=== PATIENT | male | born 1945 | race Caucasian/White ===

== ENCOUNTER 2018-04-23 08:51 | Outpatient (CLI) | payer MEDICARE, BC ==
--- NOTE | 2018-04-18 10:13 | NUR ---
left msg on machine regarding instructions on procedure. requested a call back to verify meds, allergies and pmh.
[~2018-04-23] VITALS: Ht 172.7 cm; Wt 120.9 kg
[2018-04-23] VITALS (15 sets, daily range): BP systolic 105–171; BP diastolic 38–87; PULSE 55–61
[~2018-04-23 08:51] MED LIST: 00186-0370-20 IH; ASPIRIN 32325 MG/TAB PO; ASPIRIN 81M81 MG/TA2 PO; DILAUDID 2MG TAB2 MG PO; GLUCOPHAGE1000 MG PO; LASIX 20MG TABL20 MG PO; LIPITOR 40MG TA40 MG PO; LIPITOR40 MG PO; LOPRESSOR 550 MG/TAB PO; PRILOSEC 20MG20 MG PO; RT SPIRIVA18 MCG IH; SINGULAIR10 MG PO; STOOL SOFTENER100 M2 PO; TYLENOL 325MG325 MG PO; ZYRTEC10 MG PO
--- NOTE | 2018-04-23 09:55 | NUR ---
PT ON THE TABLE AND MONITORING EQUIPMENT PLACED. TIMEOUT DONE WITH DR DAMON.
--- NOTE | 2018-04-23 10:00 | NUR ---
PT DOING WELL. NO REPORTED PAIN
--- NOTE | 2018-04-23 10:05 | NUR ---
PT DOING WELL. NO PAIN
--- NOTE | 2018-04-23 10:10 | NUR ---
PT DOING WELL.
--- NOTE | 2018-04-23 10:15 | NUR ---
PT IS DOPING WELL. PROCEDURE COMPLETED. NO PAIN. PT DID COUGH UP SOME BLOOD. MONITORING EQUIPMENT DC'D. PT TRANSFERED TO CART HIMSELF.
--- NOTE | 2018-04-23 10:49 | NUR ---
REPORT GIVEN TO DANA HARRIS. BROUGHT INTO ROOM. SPECIMEN TAKEN TO LAB.
--- NOTE | 2018-04-23 12:50 | NUR ---
PT VSS AND AX0X3 POST BIOPSY. PT VERBALIZES REDUCTION IN BLOOD TINGED SPUTUM AND DENIES PAIN AT THIS TIME. BAND AID REMAINS C/D/I. POST CXR RECEIVED AND VIEWED PER RAD. DISCHARGE INSTRUCTIONS REVIEWED AND SIGNED. 22G REMOVED FROM LEFT AC. PT AMBULATED AND VOIDED ONCE WITHOUT ISSUE. WHEELED SAFELY OUT VIA WHEELCHAIR WITH PRESENT ALONG SIDE INDIAN NANNY.
--- NOTE | 2018-04-23 14:48 | NUR ---
PT TO ROOM [address] LUNG BIOPSY. VSS AND AX0X3. BAND AID TO UPPER MID CHEST IS C/D/I. PT IS RESTING COMFORTABLY AND DENIES PAIN AT THIS TIME.
== END 2018-04-23 12:50 | disposition home or self-care (01) ==
LOC: COL.RAD 08:51
DX: R91.1 Solitary pulmonary nodule (principal)

== ENCOUNTER 2020-03-18 16:00 | Inpatient (IN) | payer MEDICARE, BC ==
[~2020-03-18] VITALS: Ht 172.7 cm; Wt 117.0 kg
[2020-03-18 17:13] LABS: TROPONIN-I < 0.012 ng/mL (0.000-0.035)
[2020-03-18 17:22] LABS: ALBUMIN 3.8 gm/dL (3.5-5.0); BILIRUBIN,TOTAL 2.9 mg/dL (0.0-1.0); CALCIUM 8.1 mg/dL (8.4-10.2); CREATININE, serum 2.48 (0.66-1.25); POTASSIUM 4.9 mmol/L (3.4-5.0); TOTAL PROTEIN 7.1 gm/dL (6.4-8.2)
[2020-03-18] MEDS ORDERED: ASPIRIN 81M81 MG/TA2 PO (20:39)
[2020-03-18] MEDS ORDERED: GLUMETZA500 MG PO (20:39)
[2020-03-18] MEDS ORDERED: LOPRESSOR 225 MG/TAB PO (20:40)
[2020-03-18] MEDS ORDERED: PROAIR HFA0.09 MG/AC IH (20:41)
[2020-03-18 21:00] VITALS: BP 125/40; PULSE 62; TEMP 98.5
[2020-03-18 22:07] VITALS: BP 125/40; PULSE 62; TEMP 98.5
[2020-03-18 22:38] LABS: MEAN CELL VOLUME 87 fl (80.0-100.0); MEAN CORPUSCULAR HGB CONC 33 g/dl (33.0-37.0); PLATELET COUNT 72 K/mm3 (130-400); RED BLOOD COUNT 3.08 M/mm3 (4.20-5.60); REDCELL DISTRIBUTION WIDTH-CV 15.9 % (11.5-14.5)
[2020-03-18 22:42] LABS: HEMATOCRIT 26.7 % (42.0-52.0); HEMOGLOBIN 8.9 g/dl (13.5-18.0); MEAN CORPUSCULAR HEMOGLOBIN 29 pg (27.0-31.0)
[2020-03-18 22:45] LABS: LACTATE DEHYDROGENASE 1505 U/L (313-618)
[2020-03-18 22:51] LABS: BILIRUBIN,DIRECT 0.1 mg/dL (0.0-0.4)
[2020-03-18 22:56] LABS: INR 1.1 (0.8-3.0); PROTHROMBIN TIME 12.7 SECONDS (9.7-12.8)
[2020-03-18 22:57] LABS: PARTIAL THROMBOPLASTIN TIME 31.6 SECONDS (26.0-37.0)
[2020-03-18 22:59] LABS: TROPONIN-I < 0.012 ng/mL (0.000-0.035)
[2020-03-18 23:04] LABS: ANISOCYTOSIS 1+; BAND 6 % (0-10); HYPOCHROMIA 1+; LYMPHOCYTE 40 % (20.0-51.0); MICROCYTOSIS 1+; NEUTROPHILS 48 % (42.0-75.2); OVALOCYTES 1+; PLATELET ESTIMATE DECREASED (NORMAL); POIKILOCYTOSIS 1+
[2020-03-18 23:05] LABS: BURR CELLS 1+; TEAR DROP CELLS 1+
[2020-03-18 23:34] LABS: COLLECTION METHOD CLEAN CATCH
[2020-03-18 23:46] VITALS: BP 142/61; PULSE 65; TEMP 97.4
[2020-03-18 23:47] LABS: AMORPHOUS CRYSTAL Present /uL; PH 5 (5-8); SQUAMOUS EPITHELIAL None Seen /hpf; URINE APPEARANCE Turbid; URINE BACTERIA Occasional /hpf; URINE BILIRUBIN Negative (NEGATIVE); URINE BLOOD Negative (NEGATIVE); URINE COLOR Amber; URINE GLUCOSE Negative (NEGATIVE); URINE KETONE Negative (NEGATIVE); URINE LEUKOCYTE ESTERASE Negative (NEGATIVE); URINE NITRATE Negative (NEGATIVE); URINE PROTEIN(semi-quant) 1+ (NEGATIVE); URINE RBC 0-2 /hpf; URINE UROBILINOGEN Negative (NEGATIVE)
[2020-03-19 04:22] VITALS: BP 133/40; PULSE 68; TEMP 98.5
--- NOTE | 2020-03-19 07:00 | NUR ---
Pt is laying in bed asleep at this time. Will assess after pt wakes up, pt did mention to product owner rn, that he would prefer to sleep until absolutely necessary to wake up. No further concerns.
[2020-03-19 07:53] LABS: ANION GAP 11 mmol/L (7-16); BLOOD UREA NITROGEN 52 mg/dL (9-20); CALCIUM 7.7 mg/dL (8.4-10.2); CARBON DIOXIDE 18 mmol/L (22-30); CHLORIDE 110 mmol/L (98-107); CREATININE, serum 2.19 (0.66-1.25); GLUCOSE 96 mg/dL (74-106); LIPASE 57 U/L (23-300); POTASSIUM 4.4 mmol/L (3.4-5.0); SODIUM 139 mmol/L (137-145)
[2020-03-19 07:58] LABS: MEAN CELL VOLUME 87 fl (80.0-100.0); MEAN CORPUSCULAR HGB CONC 33 g/dl (33.0-37.0); MEAN PLATELET VOLUME 10.7 fl (7.4-10.4); PLATELET COUNT 73 K/mm3 (130-400); RED BLOOD COUNT 2.69 M/mm3 (4.20-5.60)
[2020-03-19 07:59] LABS: TROPONIN-I < 0.012 ng/mL (0.000-0.035)
[2020-03-19 08:05] LABS: HEMATOCRIT 23.5 % (42.0-52.0); HEMOGLOBIN 7.7 g/dl (13.5-18.0); MEAN CORPUSCULAR HEMOGLOBIN 29 pg (27.0-31.0)
[2020-03-19 08:49] LABS: BAND 5 % (0-10); NEUTROPHILS 53 % (42.0-75.2)
[2020-03-19 08:50] LABS: LYMPHOCYTE 33 % (20.0-51.0)
[2020-03-19 08:51] LABS: PLATELET ESTIMATE DECREASED (NORMAL)
[2020-03-19 08:54] LABS: ANISOCYTOSIS 1+; BURR CELLS 1+; HYPOCHROMIA 1+; OVALOCYTES 1+; POIKILOCYTOSIS 2+
[2020-03-19 09:01] LABS: CREATININE, serum 2.1 (0.66-1.25)
[2020-03-19 09:25] VITALS: BP 131/50; PULSE 84; TEMP 98.8
[2020-03-19 12:09] LABS: RETIC # 0.01 M/mm3 (0.02-0.16); RETIC % 0.4 % (0.5-3.52)
[2020-03-19 12:15] VITALS: BP 134/49; PULSE 73; TEMP 98.1
[2020-03-19 13:12] LABS: HEMATOCRIT 23.5 % (42.0-52.0); HEMOGLOBIN 7.6 g/dl (13.5-18.0)
--- NOTE | 2020-03-19 13:33 | NUR ---
RIGHT AC IV CAME OUT. REPLACED IV IN THE LEFT AC. PT TOLERATED PROCESS WITHOUT DISCOMFORT. NO FURTHER CONCERNS. CALL LIGHT WITHIN REACH.
--- NOTE | 2020-03-19 13:52 | NUR ---
Primary nurse was assisted with [phone] [facility] AD[employer] student Richard oJhnston and [facility] instructor Viri Cooper RN-.
--- NOTE | 2020-03-19 16:24 | NUR ---
Payroll Technician met with the patient and the patient's , Dorota to complete intake. The patient lives in [place] with Dorota. The patient uses a BiPAP The patient is independent. The patient's PCP is Dr. Wen and patient receives medications from [facility]. The patient does not have advanced directives in the EMR but states they are complete and designate Dorota. The patient plans to return home at discharge. There are no additional needs at this time.
[2020-03-19 16:57] VITALS: BP 125/32; PULSE 73; TEMP 97.4
[2020-03-19 19:56] VITALS: BP 120/54; PULSE 76; TEMP 97.5
--- NOTE | 2020-03-19 20:00 | NUR ---
Bedside shift report received from Minnie. Patient is resting in bed, at bedside. He has just been assisted to the restroom and states he is beginning to have clear/watery bowel movements. He has no complaints of pain or nausea. He has finished drinking the bowel prep solution. No new concerns, call light in reach.
[2020-03-19 23:50] VITALS: BP 123/47; PULSE 74; TEMP 98.4
[2020-03-20] VITALS (12 sets, daily range): BP systolic 108–169; BP diastolic 47–83; PULSE 72–89; TEMP 97.4–98.3
--- NOTE | 2020-03-20 06:12 | NUR ---
Patient's bowel prep was successful and patient is having clear, watery bowel movements. He is currently resting in bed and has been informed of his EGD/colonoscopy scheduled for 0700 this morning. Pre-op fluids are prepared and primed on gravity tubing at patient's bedside. Call light in reach.
--- NOTE | 2020-03-20 06:30 | NUR ---
REPORT RCVD FROM STEVEN SANZ. PT IS CURRENTLY GOING TO ENDO WITH STEVEN SANCHEZ.
[2020-03-20 06:51] LABS: MEAN CELL VOLUME 89 fl (80.0-100.0); MEAN CORPUSCULAR HGB CONC 32 g/dl (33.0-37.0); MEAN PLATELET VOLUME 9.7 fl (7.4-10.4); PLATELET COUNT 60 K/mm3 (130-400); RED BLOOD COUNT 2.47 M/mm3 (4.20-5.60); REDCELL DISTRIBUTION WIDTH-CV 16.1 % (11.5-14.5)
[2020-03-20 07:00] LABS: ALBUMIN 3.1 gm/dL (3.5-5.0); BILIRUBIN,TOTAL 1.6 mg/dL (0.0-1.0); CALCIUM 7.5 mg/dL (8.4-10.2); CREATININE, serum 1.48 (0.66-1.25); POTASSIUM 4.7 mmol/L (3.4-5.0); TOTAL PROTEIN 6.2 gm/dL (6.4-8.2)
[2020-03-20 07:31] LABS: MEAN CORPUSCULAR HEMOGLOBIN 28 pg (27.0-31.0)
[2020-03-20 08:30] LABS: ANISOCYTOSIS 1+; BAND 6 % (0-10); BURR CELLS 1+; EOSINOPHIL 1 % (0-4); HYPOCHROMIA 1+; MYELOCYTE 2 % (0-0); OVALOCYTES 1+; PLATELET ESTIMATE DECREASED (NORMAL)
[2020-03-20 08:34] LABS: LYMPHOCYTE 31 % (20.0-51.0); NEUTROPHILS 55 % (42.0-75.2)
[2020-03-20 08:34] LABS: PATHOLOGY DIFF REVIEW OK +
--- NOTE | 2020-03-20 10:01 | NUR ---
PT WILL NEED A PRBC TRANSFUSION. ASSESSMENT COMPLETED. LUNG SOUNDS ARE CLEAR, PT IS SLIGHTLY DYSPNIC ON EXERTION. BBK IS READY WITH PRBCs TRANSFUSION TO START WITHIN THE HOUR. NO FURTHER CONCERNS.
--- NOTE | 2020-03-20 11:05 | NUR ---
This RN printed Procedure consent per patient's nurse request.
[2020-03-20 12:52] LABS: PERITONEAL -POLYMORPHONUCLEAR 15.9 % (0-25)
[2020-03-20 12:55] LABS: PERITONEAL FLUID RBC 4000 /mm3 (0-0)
--- NOTE | 2020-03-20 14:15 | NUR ---
Primary nurse was assisted with [phone] patient care by [facility] [employer] ADN student Richard Johnston and [facility] instructor Viri Cooper RN-.
--- NOTE | 2020-03-20 14:40 | NUR ---
Dr Martínez in room, procedure started after time out, fentanyl 50mcg iv given as ordered.
--- NOTE | 2020-03-20 14:50 | NUR ---
specimans obtained from site, 10 samples in formulin. bandaid oversite, pt has no c/o
--- NOTE | 2020-03-20 15:00 | NUR ---
report called to Minnie HARRIS, pt walked to bed, transferred to room via bed by Supervisor Slitting And Shipping
--- NOTE | 2020-03-20 15:20 | NUR ---
PT HAS HAD AN EVENTFUL DAY. EGD/COLON DONE THIS AM AT 0700, RESULTS DISCUSSED WITH PT BY DR. PEREZ. 1 UNIT OF PRBCs TRANSFUSED, FOLLOWING THAT, THE PATIENT WENT DOWN FOR A PARACENTESIS WELL A PERITONEAL BIOPSY. NO OTHER CONCERNS FOR THE DAY. PT TOLERATED ALL PROCEDURES WITH NO ISSUES. PT IS BACK IN HIS ROOM, SITTING IN RECLINER AND IS ORDERING DINNER.
[2020-03-20 16:59] LABS: HEMOGLOBIN 8.3 g/dl (13.5-18.0)
[2020-03-20 17:00] LABS: HEMATOCRIT 24.8 % (42.0-52.0)
--- NOTE | 2020-03-20 18:59 | NUR ---
Patient alert and oriented. ate dinner. denies any pain. spouse at bed
--- NOTE | 2020-03-20 20:30 | NUR ---
Initial shift assessment done- denies pain, denies SOB, states he is feeling so much better after the unit of blood this afternoon, Tele on, NSR, Iv fluids of NS ar 125cc/hr,, using his own CPAP at night,, Will call Amina HDEZ about new order for Lovenox--would like to clarify before I give due to low platelets.
[2020-03-21] VITALS (7 sets, daily range): BP systolic 114–146; BP diastolic 39–71; PULSE 75–88; TEMP 97.4–98.4
--- NOTE | 2020-03-21 05:55 | NUR ---
Quiet night- did wear his CPAP all night- no requests.
[2020-03-21 06:18] LABS: MEAN CELL VOLUME 89 fl (80.0-100.0); MEAN CORPUSCULAR HGB CONC 32 g/dl (33.0-37.0); PLATELET COUNT 65 K/mm3 (130-400); RED BLOOD COUNT 2.53 M/mm3 (4.20-5.60); REDCELL DISTRIBUTION WIDTH-CV 15.9 % (11.5-14.5)
[2020-03-21 06:24] LABS: ALBUMIN 2.8 gm/dL (3.5-5.0); BILIRUBIN,TOTAL 1.7 mg/dL (0.0-1.0); CALCIUM 7.5 mg/dL (8.4-10.2); CREATININE, serum 1.28 (0.66-1.25); MAGNESIUM 1.6 mg/dL (1.6-2.3); POTASSIUM 4.7 mmol/L (3.4-5.0); TOTAL PROTEIN 5.8 gm/dL (6.4-8.2)
[2020-03-21 06:33] LABS: HEMATOCRIT 22.6 % (42.0-52.0); HEMOGLOBIN 7.3 g/dl (13.5-18.0); MEAN CORPUSCULAR HEMOGLOBIN 29 pg (27.0-31.0)
--- NOTE | 2020-03-21 07:00 | NUR ---
Report received from STEVEN Rizo. Pt in bed resting with CPAP in place, awakens easily, will continue to monitor.
[2020-03-21 08:39] LABS: LYMPHOCYTE 26 % (20.0-51.0); NEUTROPHILS 65 % (42.0-75.2)
[2020-03-21 08:40] LABS: OVALOCYTES 1+; PLATELET ESTIMATE DECREASED (NORMAL); POIKILOCYTOSIS 1+
--- NOTE | 2020-03-21 09:54 | NUR ---
Assessment charted. Pt very SOB from bathroom to chair, 02 saturations are 97% but pt is SOB. Pt appears pale, resting in chair with at bedside. Update provided to daughter Marlys who is a PA in [place]. Pt denies pain, resting quietly. IV to LFA. Will continue to monitor.
--- NOTE | 2020-03-21 12:45 | NUR ---
SW spoke with patient and daughter Madhav for intake assessment. Patient lives at home in [place] with son Julian Sneed (P# [phone]). Patient does not currently have DPOA-HC. Patient wished to elect her son Julian as DPOA. SW filled out paperwork and will have patient sign them. Patient has CPAP, wheelchair, cane, and walker for DME. Patient requires assistance with activities of daily living. She currently receives home health services through [facility]. Patient's PCP is Dr. Palacios in [place], and she uses [facility] for pharmacy needs. Patient does not feel safe going home due to increased needs for assistance. Family and physician agree that patient should be admitted to SNF. Patient chose to let SW send referrals to [facility], [facility], and [facility]. home health care worker will send referrals to these facilities when Dr. Goyal places order for PT/OT, and they have assessed patient. Social work will continue to follow as needs progress.
--- NOTE | 2020-03-21 18:13 | NUR ---
Pt has done well today. UP ad autumn in room, feeling well, denies needs, at bedside, will give bedside shift report to nightshift nurse who will resume care.
[2020-03-21 21:11] LABS: MEAN CORPUSCULAR HGB CONC 33 g/dl (33.0-37.0); MEAN PLATELET VOLUME 9.7 fl (7.4-10.4); PLATELET COUNT 74 K/mm3 (130-400); RED BLOOD COUNT 2.83 M/mm3 (4.20-5.60); REDCELL DISTRIBUTION WIDTH-CV 15.6 % (11.5-14.5)
[2020-03-21 21:14] LABS: HEMATOCRIT 23.8 % (42.0-52.0); HEMOGLOBIN 7.9 g/dl (13.5-18.0); MEAN CELL VOLUME 84 fl (80.0-100.0); MEAN CORPUSCULAR HEMOGLOBIN 28 pg (27.0-31.0)
[2020-03-21 21:38] LABS: BAND 2 % (0-10); LYMPHOCYTE 24 % (20.0-51.0); NEUTROPHILS 72 % (42.0-75.2)
[2020-03-21 21:40] LABS: ANISOCYTOSIS 1+
[2020-03-21 21:41] LABS: PLATELET ESTIMATE DECREASED (NORMAL); SCHISTOCYTES 1+
[2020-03-21 21:42] LABS: OVALOCYTES 1+
[2020-03-22 06:51] LABS: BASO % 0.3 % (0.0-2.0); EOS % 0.3 % (0-4.0); GRAN # 2.1 (1.4-6.5); LYMPH # 0.9 (1.2-3.4); LYMPH % 26.9 % (20.0-51.0); MEAN CORPUSCULAR HGB CONC 32 g/dl (33.0-37.0); MEAN PLATELET VOLUME 9.5 fl (7.4-10.4); MONO # 0.2 (0.1-0.6); MONO % 7.2 % (1.7-9.3); PLATELET COUNT 99 K/mm3 (130-400); RED BLOOD COUNT 2.73 M/mm3 (4.20-5.60); REDCELL DISTRIBUTION WIDTH-CV 15.8 % (11.5-14.5)
[2020-03-22 06:52] LABS: HEMATOCRIT 24.4 % (42.0-52.0); HEMOGLOBIN 7.9 g/dl (13.5-18.0); MEAN CELL VOLUME 89 fl (80.0-100.0); MEAN CORPUSCULAR HEMOGLOBIN 29 pg (27.0-31.0)
--- NOTE | 2020-03-22 07:00 | NUR ---
Report received from STEVEN Nolasco. PT in bed resting, watching TV, denies needs. Will continue to monitor.
[2020-03-22 07:06] LABS: ALBUMIN 3.2 gm/dL (3.5-5.0); BILIRUBIN,TOTAL 1.6 mg/dL (0.0-1.0); CALCIUM 7.9 mg/dL (8.4-10.2); CREATININE, serum 1.37 (0.66-1.25); POTASSIUM 4.6 mmol/L (3.4-5.0); TOTAL PROTEIN 6.5 gm/dL (6.4-8.2)
[2020-03-22 08:09] VITALS: BP 137/54; PULSE 97; TEMP 97.6
--- NOTE | 2020-03-22 09:00 | NUR ---
Assessment charted. PT resting in chair at side of bed with at bedside, reviewed labs, doing well. Denies pain or other needs, will continue to monitor.
[2020-03-22] MEDS ORDERED: PRILOSEC 20MG20 MG PO (11:40)
--- NOTE | 2020-03-22 13:05 | NUR ---
Discharge teaching completed at this time. INT dc'd, tip intact. discharge pakcet reviewed. New meds and f/u's reviewed. Answered all questions. Pt escorted out via w/c with all belongings, to drive home, criteria met.
== END 2020-03-22 13:00 | disposition home or self-care (01) | DRG 682 ==
LOC: COL.ER 16:00 → MEDICAL 18:26
PROVIDERS: Internal Medicine Gastroenterology; Nurse Practitioner; Nurse Practitioner Family; Physician Assistant
PROC: 0W9G3ZZ Drainage of Peritoneal Cavity, Percutaneous Approach (ICD-10-PCS; 2020-03-20)
PROC: 0DB68ZX Excision of Stomach, Via Natural or Artificial Opening Endoscopic, Diagnostic (ICD-10-PCS; principal; 2020-03-20 07:00)
PROC: 0DBL8ZZ Excision of Transverse Colon, Via Natural or Artificial Opening Endoscopic (ICD-10-PCS; 2020-03-20 07:00)
DX: N17.9 Acute kidney failure, unspecified (principal); K29.61 Other gastritis with bleeding; E87.2 Acidosis; R18.8 Other ascites; D61.818 Other pancytopenia; I10 Essential (primary) hypertension; I25.10 Atherosclerotic heart disease of native coronary artery without angina pectoris; E78.5 Hyperlipidemia, unspecified; E11.9 Type 2 diabetes mellitus without complications; D50.9 Iron deficiency anemia, unspecified; J44.9 Chronic obstructive pulmonary disease, unspecified; D69.6 Thrombocytopenia, unspecified; K29.70 Gastritis, unspecified, without bleeding; K63.5 Polyp of colon; K64.0 First degree hemorrhoids; Z20.822 Contact with and (suspected) exposure to COVID-19; E66.9 Obesity, unspecified; G47.30 Sleep apnea, unspecified; Z95.1 Presence of aortocoronary bypass graft; Z85.118 Personal history of other malignant neoplasm of bronchus and lung; Z68.39 Body mass index [BMI] 39.0-39.9, adult; Z87.891 Personal history of nicotine dependence
CPT/HCPCS: 99232-AI; 99233-AI; G0378; J1650; J2704; J3010; J7030; P9016